=== PATIENT | female | born 1935 ===

== ENCOUNTER 2016-12-04 12:02 | Inpatient (IN) | payer MEDICARE ==
[~2016-12-04] VITALS: Ht 170.1 cm; Wt 56.2 kg
--- NOTE | ~2016-12-04 | WRIGHTHP ---
[place], [place] PATIENT HISTORY AND PHYSICAL EXAM [id number] UN[facility] #: [id number] ROOM: 314 DOCTOR: LISA CLARK MD BIRTHDATE: [birth year] DOS: 12/04/2016 CHIEF COMPLAINT: "It's over there." HISTORY OF PRESENT ILLNESS: This is a 81-year-old white female who resides at home with her . She was taken on the day of admission to [facility] Room for evaluation due to altered mental status. Apparently, her behavior has been worsening over the last several weeks prior to this admission. She had become increasingly more restless and agitated. Although she does have a history of Alzheimer dementia, this represented a change in her mental status. At the [place] [facility], they did an organic workup that included a UA, CBC and CMP and did not find any organic reason for this sudden change in mental status. The patient's reported that she has been increasingly more restless and agitated. She has been making a lot of verbal aggression towards him and others. She has been humming nonstop at times. She is admitted now to the [facility] to rule out further organic factors and to attempt to stabilize on medication. May also look at placement into a long-term care facility given the nature of her illness. PAST MEDICAL HISTORY: Remarkable for CVA as well as Alzheimer dementia. MENTAL STATUS: She is alert and oriented to self only this morning. She was not able to answer questions at all and tended to respond inappropriately to me. When I did ask her why she was here, she stated she was over there and pointed to an empty spot in the room. Often she did not even attempt to respond. Most often when she did respond, it was short, simple and inappropriate. Nurses report that her behavior has been very labile and unpredictable. DIAGNOSIS: Brief psychotic disorder, rule out major depression, recurrent with psychotic features. Also a diagnosis of pseudobulbar affect is noted. PLAN: I have started her on Exelon patch 4.6 mg daily to impact positively on ADL maintenance, behavior and cognition. Given the fact that pseudobulbar affect is present, I will start her on Nuedexta 20-10 one tablet daily and plan to increase this as tolerated. We will engage her in individual and jones milieu activity. We will discuss with social work program coordinator, possible placement options and discharge then when psychiatrically stable. [place], [place] PATIENT HISTORY AND PHYSICAL EXAM NAME: JROGE LA UNIT #: [id number] ROOM: [facility] DOCTOR: LISA CLARK MD BIRTHDATE: [birth year] LISA CLARK MD CM:HISPHYS:PATIENT HISTORY AND PHYSICAL EXAMINATION 2 LISA CLARK MD 12/05/16822 interface
--- NOTE | ~2016-12-04 | PR ---
[place], [place] PROGRESS NOTE [facility] [id number] UNIT #: [id number] ROOM: 314 DOCTOR: SANDY LOPEZ BIRTHDATE: [birth year] DOS: 12/06/2016 CHIEF COMPLAINT: This morning, the patient was nonverbal. SUMMARY OF THE VISIT: She was seated in a Irma chair in the dining room where she had had her breakfast tray in front of her, did not eat much at the time that I was in there. She is awake and alert, but her processing is very slow, did not answer any of the questions that I asked her this morning. Her eyes are very red. It looks like she has not slept in a little while. We have discontinued her home meds just to start all over and now try to get her feeling little bit better. She slept about 3 hours last night. She did also have a positive UA and they are awaiting the results of the C and S and that will be treated by the medical doctors. PLAN: Today is to increase her Exelon patch to 9.5 every day and continue to try to engage her in individual and jones milieu and discharge her back to the skilled nursing when she is psychologically stable. Sandy Lopez NP CM:DOLLY 6 7 SANDY LOPEZ 12/06/16937 interface
--- NOTE | ~2016-12-04 | PR ---
[place], [place] PROGRESS NOTE [facility] [id number] UNIT #: [id number] ROOM: 311 DOCTOR: SANDY LOPEZ BIRTHDATE: [birth year] DOS: 12/10/2016 CHIEF COMPLAINT: "Good morning." SUMMARY OF THE VISIT: She is resting in bed. She did not really answer questions this morning, just a brief answers. She did not get up and want any breakfast this morning. MENTAL STATUS EXAMINATION: She is alert and oriented to herself, not to place and time. Mood and affect seem to be more appropriate today. There are no symptoms of kamron or hypomania. She is not saying that she is having any audio or visual hallucinations, delusions or paranoia. Her dementia is such that her memory is impaired. PLAN: We will continue the medications that she is on right now. Plan for discharge more than likely tomorrow back to the long-term care facility. We will continue to try to engage her in individual and jones milieu and discharge her to the least restrictive environment whenever she is psychologically stable. Sandy Lopez NP CM:DOLLY 1 7 SANDY LOPEZ 12/10/16 0947 interface
--- NOTE | ~2016-12-04 | PR ---
[place], [place] PROGRESS NOTE [facility] [id number] UNIT #: [id number] ROOM: 315 DOCTOR: LISA CLARK MD BIRTHDATE: [birth year] DOS: 12/09/2016 CHIEF COMPLAINT: "Oh morning." SUMMARY OF THE VISIT: The patient was interviewed as she rested quietly in bed again. She did engage in brief superficial conversation. She remains grossly disoriented and very confused, but pleasantly so. She reported that she was ready for breakfast and wanted some assistance. MENTAL STATUS: She is alert and oriented to self, not to time or place. Mood does seem to be trending towards euthymia and affect is more appropriate. There is no symptom suggestive of kamron or hypomania. There are no auditory or visual hallucinations. No delusions, no paranoia. Memory is grossly impaired. PLAN: I will maintain her current psychotropic regimen. Continue to engage in individual and jones milieu activity with the ultimate plan to return her to her long-term care facility when psychiatrically stable. LISA CLARK MD CM:PNTRANS [id number] LISA CLARK MD 12/09/16 2323 interface
--- NOTE | ~2016-12-04 | PR ---
[place], [place] PROGRESS NOTE [facility] [id number] UNIT #: [id number] ROOM: 311 DOCTOR: SANDY LOPEZ BIRTHDATE: [birth year] DOS: 12/11/2016 CHIEF COMPLAINT: This morning, ____." SUMMARY OF THE VISIT: The patient was lying in bed, sleeping. She opened her eyes and made eye contact, but then laid right back down after just a couple of short answers to questions. According to nursing staff, she did well last night. She got up, she toilets herself. She was medication compliant, just very sleepy still this morning. PLAN: I went ahead and decreased her Remeron to 7.5 just to see if I could increase her wakefulness a little bit more by coming down on that. We will continue to try to engage her in individual and jones milieu and discharge her back to the least restrictive environment when she is psychologically stable. Sandy Lopez NP CM:DOLLY [id number] SANDY LOPEZ 12/12/16 0026 interface
--- NOTE | ~2016-12-04 | PR ---
[place], [place] PROGRESS NOTE [facility] [id number] UNIT #: [id number] ROOM: 315 DOCTOR: LISA CLARK MD BIRTHDATE: [birth year] DOS: 12/08/2016 CHIEF COMPLAINT: "Good morning, thanks for stopping." SUMMARY OF THE VISIT: The patient was resting in bed. She was lying with her back towards me and conducted the entire interview that way. She was pleasant, however, and did answer all of my questions, most of the responses tended to be short and simple, but she was pleasant in doing so. Nurses report that she continues to have episodes of increased confusion and agitation. MENTAL STATUS: She is alert and oriented to person, possibly place, but not time. Mood does seem to be trending towards euthymia. Affect is more appropriate. There is no hypomania or kamron. There are no overt auditory or visual hallucinations. No delusions. No paranoia is present. Short term memory is exceedingly poor. PLAN: I will plan to maximize out the dose of Exelon patch, bringing it from 9.5-13.3 mg daily. We will also max out the dose of Nuedexta 20-10 to 1 tablet every 12 hours. At this point too I would like to see if we can discontinue the Latuda to try to simplify her drug regimen. We will continue her other psychotropics, continue to engage her in individual and jones milieu activity with the ultimate plan to return to her long-term care facility when stable. LISA CLARK MD CM:PNTRANS [id number] LISA CLARK MD 12/08/16 1013 interface
--- NOTE | ~2016-12-04 | DS ---
[place], [place] DISCHARGE SUMMARY [id number] UN[facility] #: [id number] ROOM: 311 DOCTOR: SANDY LOPEZ BIRTHDATE: [birth year] DOS: 12/12/2016 CHIEF COMPLAINT: This morning, "hi who are you." HISTORY OF PRESENT ILLNESS: She was admitted to [facility] from [facility]. Previously, she had resided at home with her and came into the hospital for altered mental status. The reported that her behaviors have been worsening over the past several weeks, more restless and agitated and it was worse than it had been previously for her. She went to [facility] where they did a workup to rule out any organic causes before being admitted to the Behavioral Health Unit. SUMMARY OF HOSPITAL COURSE: She was started on an Exelon patch and that was titrated up while she was here to treat the dementia. She is also started on Nuedexta. Her Latuda was discontinued in order to try to simplify her medication regimen a little bit better and her Remeron was adjusted to try and help her to get more sleep through the night. MENTAL STATUS AT DISCHARGE: She is alert. She is oriented pretty much only to self. She did answer questions. She was pleasant, not agitated at all. She is confused to time and place . DIAGNOSES AT DISCHARGE: Brief psychotic disorder and dementia. DISPOSITION: She will be discharged to a long-term care facility at this time because she requires more care than she did prior to being admitted. Her scripts have been printed and will be sent with her on discharge. She is being discharged in stable psychiatric condition. Sandy Lopez NP CM:DISCHARG 51 SANDY LOPEZ 12/12/161850 interface
--- NOTE | ~2016-12-04 | PR ---
[place], [place] PROGRESS NOTE NAME: JORGE LA [facility] #: [id number] UNIT #: [id number] ROOM: 315 DOCTOR: SANDY LOPEZ BIRTHDATE: [birth year] DOS: 12/07/2016 CHIEF COMPLAINT: This morning, the resident is sleeping. SUMMARY OF THE VISIT: The patient is being treated for a urinary tract infection. Staff report that she is not sleeping at night, which is likely why she is still sleeping right now. She was just in constant movement and was unable to rest that well through the night. I am unable to assess her orientation due to her sleeping. She did open her eyes and and make eye contact, but she did not answer any questions. PLAN: Today is to increase her Remeron to 15 mg at bedtime in order to hopefully enhance her appetite and help her to sleep more through the night, so that she is not sleepy through the day. We will continue to engage her in individual and jones milieu and discharge her to the least restrictive environment whenever she is psychologically stable. Sandy Lopez NP CM:DOLLY 9 11 SANDY LOPEZ 12/07/162110 interface
[2016-12-04] MEDS ORDERED: XANAX0.25 MG PO (14:50)
[2016-12-04] MEDS ORDERED: TRAZODONE HYDR100 MG PO (14:51)
[2016-12-04] MEDS ORDERED: RISPERDAL1 M1 PO (14:56)
[2016-12-04] MEDS ORDERED: DEPAKOTE SPRIN125 MG PO (14:56)
[2016-12-04 18:19] VITALS: BP 103/63
[2016-12-04 20:00] VITALS: BP 130/60
[2016-12-04 21:43] VITALS: BP 130/60
[2016-12-05 07:29] LABS: HEMOGLOBIN A1c 5.8 % (4.8-5.6)
[2016-12-05 07:33] LABS: THYROID STIM HORMONE (HS) 2.85 uIU/ml (0.358-4.75)
[2016-12-05 08:24] LABS: FOLIC ACID > 24.00 ng/mL (>5.38)
[2016-12-05] MEDS ORDERED: AMBIEN10 M1 PO (09:15)
[2016-12-05] MEDS ORDERED: SEROQUEL50 MG PO (09:15)
[2016-12-05 09:45] VITALS: BP 118/91
[2016-12-05 13:35] LABS: BILIRUBIN NEGATIVE (NEGATIVE); BLOOD 3+ (NEGATIVE); CLARITY SL CLOUDY (CLEAR); COLOR YELLOW (YELLOW); GLUCOSE NEGATIVE (NEGATIVE); KETONE TRACE (NEGATIVE); LEUKO ESTERASE 1+ (NEGATIVE); NITRITE POSITIVE (NEGATIVE); PROTEIN TRACE (NEGATIVE); SPECIFIC GRAVITY >= 1.030 (1.005-1.030)
[2016-12-05 13:44] LABS: BACTERIA 2+; URINE REFLEX COMMENT YES (NO); WBC 21-30 wbc/hpf (0-5)
[2016-12-05 19:51] VITALS: BP 125/50
[2016-12-06 08:30] VITALS: BP 117/47
[2016-12-06 20:09] VITALS: BP 153/64
[2016-12-07 08:00] VITALS: BP 152/63
[2016-12-07 20:00] VITALS: BP 116/56
[2016-12-08 07:49] VITALS: BP 115/49
[2016-12-08 20:25] VITALS: BP 119/83
[2016-12-09 08:53] VITALS: BP 117/47
[2016-12-09 20:00] VITALS: BP 131/63
[2016-12-10 08:02] VITALS: BP 118/53
[2016-12-10 20:09] VITALS: BP 109/82
[2016-12-11 08:00] VITALS: BP 128/60
[2016-12-11 19:59] VITALS: BP 118/52
[2016-12-12 07:57] VITALS: BP 143/58
[2016-12-12] MEDS ORDERED: MIRTAZAPINE15 M2 PO (09:11)
[2016-12-12] MEDS ORDERED: NUED1CAP PO (09:11)
[2016-12-12] MEDS ORDERED: EXELON13.3 MG/21 T (09:11)
[2016-12-12] MEDS ORDERED: VITAMIN D50000 I3 PO (09:11)
[2016-12-12] MEDS ORDERED: SIMVASTATIN20 MG PO (10:35)
== END 2016-12-12 15:15 | disposition home or self-care (01) | DRG 57 ==
LOC: 3N 12:02
PROVIDERS: Psychiatry & Neurology Psychiatry
DX: G30.9 Alzheimer's disease, unspecified (principal); N39.0 Urinary tract infection, site not specified; F02.80 Dementia in other diseases classified elsewhere, unspecified severity, without behavioral disturbance, psychotic disturbance, mood disturbance, and anxiety; F23 Brief psychotic disorder; E78.00 Pure hypercholesterolemia, unspecified; E55.9 Vitamin D deficiency, unspecified; Z86.73 Personal history of transient ischemic attack (TIA), and cerebral infarction without residual deficits; Z98.49 Cataract extraction status, unspecified eye; Z88.6 Allergy status to analgesic agent; Z79.899 Other long term (current) drug therapy